=== PATIENT | female | born 1935 | race Caucasian/White ===

== ENCOUNTER 2016-06-19 13:33 | Observation (INO) | payer OTHER ==
[2016-06-19] VITALS (7 sets, daily range): BP systolic 125–145; BP diastolic 68–73; PULSE 61–73; RESP 16–18; TEMP 96.9–97.4; O2SAT 97–100
[~2016-06-19] VITALS: Ht 157.5 cm; Wt 48.1 kg
[~2016-06-19 13:33] MED LIST: ARIC5TAB PO; ASPI81 PO; BETH5TAB3 PO; DICL75 PO; DIGO0.12 PO; FLAG500T PO; FOSA70TA PO; LORTA5 PO; MACR100C PO; OMEP20TA39 PO; RANI150 PO; VITA200017 PO
[2016-06-19] MEDS ORDERED: [UNRECOGNIZED DRUG - CODE] PO (14:02)
[2016-06-19] MEDS ORDERED: ASPI81TA11 PO (14:02)
[2016-06-19] MEDS ORDERED: VITA100052 PO (14:02)
[2016-06-19] MEDS ORDERED: DIGO0.12 PO (14:02)
[2016-06-19] MEDS ORDERED: VITA100021 SL (14:03)
--- NOTE | 2016-06-19 14:12 | PD ---
HPI Chief Complaint: Musculoskeletal Complaint Time Seen by Provider: 14:00 Travel History International Travel<30 days: No Contact w/Intl Traveler<30days: No Traveled to known affect area: No History of Present Illness HPI 81-year-old female here for evaluation of left-sided chest pain. Pain started about 2 hours ago while at rest. Patient describes the pain as sharp/ache, constant, no modifying factors. She currently rates the pain as 10 out of 10. No dyspnea. She denies history of cardiac disease. No history of DVT or PE. Patient is on digoxin for history of A. fib. Apparently she also has history of dementia and is on Aricept. PFSH Past Medical History Atrial Fibrillation: Yes Heart Rhythm Problems: Yes (HX ATRIAL FIBRILLATION) Cancer: No Cardiac Catheterization: No Cardiovascular Problems: Yes High Cholesterol: No Chemotherapy: No Congestive Heart Failure: No Diabetes: No Diminished Hearing: No Gastrointestinal Disorders: No GERD: Yes Genitourinary: No Heparin Induced Thrombocytopen: No Hypertension: No Musculoskeletal: Yes (OSTEOPOROSIS) Reproductive: No Respiratory: No Radiation Therapy: No Ulcer: Yes Tetanus Vaccination: < 5 Years ?: Not Menopausal: Yes Past Surgical History Cholecystectomy: Yes Coronary Artery Bypass Graft: No Hysterectomy: Yes Social History Alcohol Use: Yes (OCC. WINE) Tobacco Use: No Substance Use: No Allergies-Medications (Allergen,Severity, Reaction): Coded Allergies: Cultivated Oat Pollen (Verified Allergy, Severe, Sneezing, 06/19/16) Reported Meds & Prescriptions Reported Meds & Active Scripts Active Reported Vitamin B-12 (Cyanocobalamin) 1,000 Mcg Subl Unknown Dose SL DAILY Digoxin 0.125 Mg Tab 0.125 Mg PO DAILY Vitamin D High Potency (Cholecalciferol) 1,000 Unit Cap 2,000 Units PO DAILY Urecholine (Bethanechol) 5 Mg Tab 5 Mg PO QID Aspirin EC (Aspirin) 81 Mg Tabdr 81 Mg PO DAILY Review of Systems Except as stated in HPI: all other systems reviewed are Neg Physical Exam Narrative GENERAL: Well-developed, thin, comfortable, no acute distress. SKIN: Focused skin assessment warm/dry. HEAD: Atraumatic. Normocephalic. EYES: Pupils equal and round. No scleral icterus. No injection or drainage. ENT: No nasal bleeding or discharge. Mucous membranes pink and moist. NECK: Trachea midline. No JVD. CARDIOVASCULAR: Regular rate and rhythm. Distal pulses brisk and equal bilaterally. RESPIRATORY: No accessory muscle use. Clear to auscultation. Breath sounds equal bilaterally. GASTROINTESTINAL: Abdomen soft, non-tender, nondistended. MUSCULOSKELETAL: No obvious deformities. No clubbing. No cyanosis. No edema. Left anterior chest wall without tenderness, without masses, without paradoxical chest wall movement, without step-off. NEUROLOGICAL: Awake and alert. No obvious cranial nerve deficits. Motor grossly within normal limits. Normal speech. PSYCHIATRIC: Appropriate mood and affect; insight and judgment normal. Data Data Last Documented VS Vital Signs Date Time Temp Pulse Resp B/P Pulse Ox O2 Delivery O2 Flow Rate FiO2 06/19/16 15:46 70 16 125/68 98 Room Air 06/19/16 13:44 97.4 Orders Electrocardiogram (06/19/16 14:05) Basic Metabolic Panel (Bmp) (06/19/16 14:05) Ckmb (Isoenzyme) Profile (06/19/16 14:05) Complete Blood Count With Diff (06/19/16 14:05) Magnesium (Mg) (06/19/16 14:05) Prothrombin Time / Inr (Pt) (06/19/16 14:05) Act Partial Throm Time (Ptt) (06/19/16 14:05) Troponin I (06/19/16 14:05) Chest, Single Ap (06/19/16 14:05) Ecg Monitoring (06/19/16 14:05) Iv Access Insert/Monitor (06/19/16 14:05) Oximetry (06/19/16 14:05) Aspirin Chew (Aspirin Chew) (06/19/16 14:15) Sodium Chloride 0.9% Flush (Ns Flush) (06/19/16 14:15) Digoxin (06/19/16 14:05) Ct Pulmonary Angiogram (06/19/16 14:05) Iohexol 350 Inj (Omnipaque 350 Inj) (06/19/16 15:08) Nitroglycerin Sl (Nitrostat Sl) (06/19/16 15:45) Place In Observation (06/19/16:52) Activity Bed Rest With Brp (06/19/16 15:52) Vital Signs (Adult) Q4H (06/19/16 15:52) Cardiac Rhythm .As Directed (06/19/16 15:52) Notify Dr: Other .PRN (06/19/16 15:52) Notify Dr. Parameters (06/19/16 15:52) Resp Oxygen Nasal Cannula (06/19/16 ) Diet Heart Healthy (06/19/16 Dinner) Ckmb (Isoenzyme) Profile (06/19/16 17:00) Ckmb (Isoenzyme) Profile (06/19/16 20:00) Troponin I (06/19/16 17:00) Troponin I (06/19/16 20:00) Electrocardiogram (06/19/16 17:00) Electrocardiogram (06/19/16 20:00) ^ Obtain (06/19/16 15:52) Sodium Chloride 0.9% Flush (Ns Flush) (06/19/16 16:00) Sodium Chloride 0.9% Flush (Ns Flush) (06/19/16 21:00) Acetaminophen (Tylenol) (06/19/16 16:00) Acetamin-Hydrocod 325-7.5 Mg ([place] 7.5 (06/19/16 16:00) Morphine Inj (Morphine Inj) (06/19/16 16:00) Ondansetron Inj (Zofran Inj) (06/19/16 16:00) Nitroglycerin Sl (Nitrostat Sl) (06/19/16 16:00) Temazepam (Restoril) (06/19/16 16:00) Pellet Machine Operator / Telemetry ORLIN.Q8H (06/19/16 15:52) Scd Bilateral/Knee High ORLIN.BID (06/19/16 15:52) Admit Order (Ed Use Only) (06/19/16 15:54) Labs Laboratory Tests Test 06/19/16 14:00 White Blood Count 5.3 TH/MM3 Red Blood Count 4.64 MIL/MM3 Hemoglobin 13.3 GM/DL Hematocrit 39.8 % Mean Corpuscular Volume 85.9 FL Mean Corpuscular Hemoglobin 28.6 PG Mean Corpuscular Hemoglobin 33.3 % Concent Red Cell Distribution Width 13.9 % Platelet Count 241 TH/MM3 Mean Platelet Volume 7.4 FL Neutrophils (%) (Auto) 54.5 % Lymphocytes (%) (Auto) 32.0 % Monocytes (%) (Auto) 8.2 % Eosinophils (%) (Auto) 4.7 % Basophils (%) (Auto) 0.6 % Neutrophils # (Auto) 2.9 TH/MM3 Lymphocytes # (Auto) 1.7 TH/MM3 Monocytes # (Auto) 0.4 TH/MM3 Eosinophils # (Auto) 0.3 TH/MM3 Basophils # (Auto) 0.0 TH/MM3 CBC Comment DIFF FINAL Differential Comment Prothrombin Time 11.8 SEC Prothromb Time International 1.1 RATIO Ratio Activated Partial 24.0 SEC Thromboplast Time Sodium Level 142 MEQ/L Potassium Level 3.8 MEQ/L Chloride Level 105 MEQ/L Carbon Dioxide Level 30.1 MEQ/L Anion Gap 7 MEQ/L Blood Urea Nitrogen 15 MG/DL Creatinine 0.75 MG/DL Estimat Glomerular Filtration 74 ML/MIN Rate Random Glucose 112 MG/DL Calcium Level 8.6 MG/DL Magnesium Level 2.8 MG/DL Total Creatine Kinase 75 U/L Troponin I LESS THAN 0.02 NG/ML Digoxin Level 0.9 NG/ML MDM Medical Decision Making Medical Screen Exam Complete: Yes Emergency Medical Condition: Yes Medical Record Reviewed: Yes Interpretation(s) EKG: Sinus, rate 66, leftward axis, normal intervals, Q waves in inferior leads , no acute ischemic abnormality. Differential Diagnosis ACS, pneumothorax, pericarditis, PE, pneumonia, musculoskeletal pain, Narrative Course Initial vital signs show heart rate 73, blood pressure 142/72, pulse ox 100% on room air, oral temp of 97.4F. CBC is unremarkable. BMP is unremarkable. Cardiac enzymes are negative. Digoxin level is 0.9. Chest x-ray: No acute disease. CT pulmonary angiogram: CONCLUSION: 1. No evidence of pulmonary embolism. 2. Scattered 5 mm less noncalcified pulmonary nodules within the upper lobes bilaterally. Follow CT of the chest in 6 months is recommended to confirm stability. 3. Aneurysmal dilatation of the ascending thoracic aorta measuring 4.1 cm AP by 2.9 cm transverse. 4. Cardiomegaly. The patient continues to complain of left-sided chest discomfort, however states it has improved since she has arrived in the emergency department. She was made aware of all findings. She will be admitted to the chest pain center for further cardiac evaluation. She is amenable to this plan. Case discussed with hospitalist Dr. Hernández who will admit the patient to his service to the chest pain center. I discussed all findings and plan for observation the chest pain center with the patient's son who lives in [place] via the patient's cell phone. Diagnosis Primary Impression: Chest pain Qualified Code: R07.9 - Chest pain, unspecified type Additional Impressions: Thoracic aortic aneurysm Qualified Code: I71.2 - Thoracic aortic aneurysm without rupture Pulmonary nodule Nikolai Moran MD June 19, 2016 14:12
[2016-06-19 14:15] LABS: AUTOMATED NEUTROPHIL # 2.9 TH/MM3 (1.8-7.7); BASOPHIL % 0.6 % (0.0-2.0); EOSINOPHIL # 0.3 TH/MM3 (0-0.4); EOSINOPHIL % 4.7 % (0.0-4.0); HEMATOCRIT 39.8 % (35.0-46.0); HEMO FLAGS DIFF FINAL; LYMPHOCYTE # 1.7 TH/MM3 (1.0-4.8); MEAN CELL VOLUME 85.9 FL (80.0-100.0); MEAN CORPUSCULAR HEMOGLOBIN 28.6 PG (27.0-34.0); MEAN CORPUSCULAR HGB CONC 33.3 % (32.0-36.0); MONO % 8.2 % (0.0-8.0); NEUT % 54.5 % (16.0-70.0); PLATELET COUNT 241 TH/MM3 (150-450); RED BLOOD COUNT 4.64 MIL/MM3 (4.00-5.30); RED CELL DISTRIBUTION WIDTH 13.9 % (11.6-17.2); WHITE BLOOD COUNT 5.3 TH/MM3 (4.0-11.0)
[2016-06-19] MEDS ORDERED: ASPIRIN 81 MG CHEW TAB PO ONE (14:15)
[2016-06-19] MEDS ORDERED: SODIUM CHLORIDE 0.9% FLUSH 10 ML FLUSH IVF PRN (14:15)
--- NOTE | 2016-06-19 14:19 | RADHPO ---
EXAM DATE/TIME: 06/19/2016 14:12 [facility] COMPARISON: No previous studies available for comparison. INDICATIONS : Left upper chest pain today MEDICAL HISTORY : None. SURGICAL HISTORY : None. ENCOUNTER: Initial ACUITY: 1 day PAIN SCORE: 9/10 LOCATION: Left upper chest FINDINGS: A single view of the chest demonstrates the lungs to be symmetrically aerated without evidence of mas s, infiltrate or effusion. Apical pleural thickening on the right. The cardiomediastinal contours are unremarkable. Osseous structures are intact. CONCLUSION: No acute disease. Thomas Espinoza MD on June 19, 2016 at 14:17 Board Certified Radiologist. This report was verified electronically.
[2016-06-19 14:23] LABS: CHLORIDE 105 MEQ/L (98-107); POTASSIUM 3.8 MEQ/L (3.5-5.1); SODIUM (NA) 142 MEQ/L (136-145)
[2016-06-19 14:26] LABS: ANION GAP 7 MEQ/L (5-15); BICARBONATE 30.1 MEQ/L (21.0-32.0); BLOOD UREA NITROGEN 15 MG/DL (7-18); MAGNESIUM 2.8 MG/DL (1.5-2.5)
[2016-06-19 14:28] LABS: INTERNATIONAL NORMALIZED RATIO 1.1 RATIO; PROTHROMBIN TIME - PATIENT 11.8 SEC (9.8-11.6)
[2016-06-19 14:29] LABS: GLOMERULAR FILTRATION RATE 74 ML/MIN (>89)
[2016-06-19 14:38] LABS: CREATINE KINASE 75 U/L (26-192)
[2016-06-19 15:08] LABS: DIGOXIN 0.9 NG/ML (0.8-2.0)
[2016-06-19] MEDS ORDERED: IOHEXOL 350 MG/ML 10 ML VIAL (for RAD DIAG) IV ONE (15:08)
--- NOTE | 2016-06-19 15:28 | RADHPO ---
EXAM DATE/TIME: 06/19/2016 14:57 [facility] COMPARISON: No previous studies available for comparison. INDICATIONS : Left chest pain. IV CONTRAST: 100 cc Omnipaque 350 (iohexol) IV RADIATION DOSE: 6.1 CTDIvol (mGy) MEDICAL HISTORY : Cardiovascular disease. SURGICAL HISTORY : None. ENCOUNTER: Initial ACUITY: 1 day PAIN SCALE: 5/10 LOCATION: Left chest TECHNIQUE: Volumetric scanning of the chest was performed using a pulmonary embolism protocol MIP images were re constructed. Using automated exposure control and adjustment of the mA and/or kV according to patien t size, radiation dose was kept as low as reasonably achievable to obtain optimal diagnostic quality images. FINDINGS: PULMONARY ARTERIES: No filling defects are seen in the pulmonary arteries through the segmental level. LUNGS: There is no consolidation or pneumothorax . Scattered noncalcified nodules are noted bilaterally prob ably within the inferior aspects of the upper lobes. The largest nodule is located within the lingula of the left upper lobe and measures 5 mm. There are at least 5 sub-5 mm nodules within the inferior aspect of the right upper lobe. Followup CT of chest in 6 months is recommended to confirm stability of these indeterminate nodules. Biapical fibrotic scarring is noted. PLEURAE: There is no pleural thickening or pleural effusion. MEDIASTINUM: There is good visualization of the great vessels of the middle mediastinum. No evidence of mediastin al or hilar adenopathy/mass. There is aneurysmal dilatation of the ascending thoracic aorta which hadley sures 4.1 cm AP by 2.9 cm transverse. The heart is enlarged. MUSCULOSKELETAL: Within normal limits for patient age. MISCELLANEOUS: The visualized upper abdominal organs demonstrate no acute abnormality. CONCLUSION: 1. No evidence of pulmonary embolism. 2. Scattered 5 mm less noncalcified pulmonary nodules within the upper lobes bilaterally. Follow CT o f the chest in 6 months is recommended to confirm stability. 3. Aneurysmal dilatation of the ascending thoracic aorta measuring 4.1 cm AP by 2.9 cm transverse. 4. Cardiomegaly. Vicente Santillan MD on June 19, 2016 at 15:19 Board Certified Radiologist. This report was verified electronically.
[2016-06-19] MEDS ORDERED: NITROGLYCERIN 0.4 MG SL 25 TABS/BTL SL ONE (15:45)
[2016-06-19] MEDS ORDERED: NITROGLYCERIN 0.4 MG SL 25 TABS/BTL SL PRN (16:00)
[2016-06-19] MEDS ORDERED: ACETAMINOPHEN/HYDROcodone 325 MG/7.5 MG TAB PO PRN (16:00)
[2016-06-19] MEDS ORDERED: TEMAZEPAM 15 MG CAP PO PRN (16:00)
[2016-06-19] MEDS ORDERED: ONDANSETRON HCL 4 MG/2 ML VIAL IV PRN (16:00)
[2016-06-19] MEDS ORDERED: SODIUM CHLORIDE 0.9% FLUSH 10 ML FLUSH IV FLUSH PRN (16:00)
[2016-06-19] MEDS ORDERED: MORPHINE SULFATE 4 MG/ML INJ IV PRN (16:00)
[2016-06-19] MEDS ORDERED: ACETAMINOPHEN 500 MG CPLT PO PRN (16:00)
--- NOTE | 2016-06-19 16:36 | HHI.HP ---
[facility] Primary Care Physician Jennifer Carrion Admission Diagnosis chest pain, thoracic aortic aneurysm, pulmonary nodules Diagnoses: (1) Chest pain Diagnosis: Principal (2) Atrial fibrillation Diagnosis: Secondary (3) Pulmonary nodule Diagnosis: Secondary (4) Thoracic aortic aneurysm Diagnosis: Secondary Chief Complaint: Chest pain Travel History International Travel<30 Days: No Contact w/Intl Traveler <30 Da: No Traveled to Known Affected Are: No History of Present Illness Note written by Robert Banerjee, acting as scribe for Dr. Hernández on 06/19/16 at 16:24. 81-year-old female with known history of atrial fibrillation, gastric reflux who presented to hospital because of chest discomfort. Patient states that she is in normal state of health until today when she was eating lunch. She is eating a leftover wrap from last evening she developed a pain in her left chest located on the left side of her left breast. It is a rather sharp pain that increased in intensity every couple seconds scaled as a 8/10. She states that the pain was persistent until she came to the hospital. She was given 4 aspirin and 2 nitroglycerin with improvement of the pain however did not resolve completely. Patient still experiencing discomfort when seen in the ER. She states that is a 4/10 on a pain scale. Patient states that she has never had this type of pain before. She has been to the hospital 2011 in which she underwent evaluation chest pain center with nuclear stress test and it was normal that time. Patient denies any radiation of pain, nausea, vomiting, shortness of breath, dyspnea, dizziness, lightheadedness. Patient denies any recent physical activity to include yard work, heavy lifting or straining, repetition upper extremity Review of Systems Constitutional: DENIES: Diaphoretic episodes, Fatigue, Fever, Weight gain, Weight loss, Chills, Dizziness, Change in appetite, Night Sweats Eyes: DENIES: Blurred vision, Diplopia, Eye inflammation, Eye pain, Vision loss , Double Vision Ears, nose, mouth, throat: DENIES: Vertigo, Nasal discharge, Throat pain, Ear Pain, Running Nose, Sinus Pain Respiratory: DENIES: Apneas, Cough, Snoring, Wheezing, Hemoptysis, Sputum production, Shortness of breath Cardiovascular: COMPLAINS OF: Chest pain, DENIES: Palpitations, Syncope, Dyspnea on Exertion, Lower Extremity Edema, Orthopnea Gastrointestinal: DENIES: Abdominal pain, Black stools, Bloody stools, Constipation, Diarrhea, Nausea, Vomiting, Difficulty Swallowing, Anorexia Neurologic: DENIES: Abnormal gait, Headache, Localized weakness, Paresthesias, Seizures, Speech Problems, Tremor, Poor Balance Past Family Social History Past Medical History Atrial fibrillation Gastroesophageal reflux Past Surgical History Hysterectomy Cholecystectomy Reported Medications Reported Meds & Active Scripts Active Reported Vitamin B-12 (Cyanocobalamin) 1,000 Mcg Subl Unknown Dose SL DAILY Digoxin 0.125 Mg Tab 0.125 Mg PO DAILY Vitamin D High Potency (Cholecalciferol) 1,000 Unit Cap 2,000 Units PO DAILY Urecholine (Bethanechol) 5 Mg Tab 5 Mg PO QID Aspirin EC (Aspirin) 81 Mg Tabdr 81 Mg PO DAILY Allergies: Coded Allergies: Cultivated Oat Pollen (Verified Allergy, Severe, Sneezing, 06/19/16) Family History Family history reviewed and patient denies any significant heart disease, lung disease, diabetes, cancer, seizures, stroke Social History Patient denies any tobacco or illicit drugs. She states that she does drink a glass of wine nightly Physical Exam Vital Signs Vital Signs Date Time Temp Pulse Resp B/P Pulse Ox O2 Delivery O2 Flow Rate FiO2 06/19/16 15:46 70 16 125/68 98 Room Air 06/19/16 14:21 16 99 Room Air 06/19/16 13:44 97.4 73 16 142/72 100 Physical Exam GENERAL: Well-developed, well-nourished, in no acute distress. alert and orientated HEENT: Head is normocephalic without any lesions or masses noted. Facial features are symmetric. Eyes: Pupils equal round reactive to light. Extraocular muscles are intact. Conjunctivae were clear. Oropharyngeal: Pharynx without any erythema edema. Tongue is midline without deviation. Buccal mucosa is moist without any masses or lesions NECK: Supple without any masses. Trachea midline no deviation. No JVD, no bruits are appreciated CARDIAC: Regular rhythm, regular rate. S1/S2 are heard. No murmurs gallops or rubs. LUNGS: Clear to auscultation bilaterally. No wheeze, rhonchi or rales. No use of accessory muscles on inspiration or expiration. ABDOMEN: Soft, nontender. Nondistended. Bowel sounds heard in all 4 quadrants. No organomegaly or masses. Negative rebound, negative guarding EXTREMITIES: No edema, pulses are equal bilaterally. No cyanosis or clubbing NEUROLOGY: Mood and affect appear appropriate. Cranial nerves II through XII grossly intact. Muscle strength 5/5 in upper and lower extremities bilaterally. Deep tendon reflexes are 2+ in upper and lower extremities bilaterally. Laboratory Laboratory Tests Test 06/19/16 14:00 White Blood Count 5.3 Red Blood Count 4.64 Hemoglobin 13.3 Hematocrit 39.8 Mean Corpuscular Volume 85.9 Mean Corpuscular Hemoglobin 28.6 Mean Corpuscular Hemoglobin 33.3 Concent Red Cell Distribution Width 13.9 Platelet Count 241 Mean Platelet Volume 7.4 Neutrophils (%) (Auto) 54.5 Lymphocytes (%) (Auto) 32.0 Monocytes (%) (Auto) 8.2 Eosinophils (%) (Auto) 4.7 Basophils (%) (Auto) 0.6 Neutrophils # (Auto) 2.9 Lymphocytes # (Auto) 1.7 Monocytes # (Auto) 0.4 Eosinophils # (Auto) 0.3 Basophils # (Auto) 0.0 CBC Comment DIFF FINAL Differential Comment Prothrombin Time 11.8 Prothromb Time International 1.1 Ratio Activated Partial 24.0 Thromboplast Time Sodium Level 142 Potassium Level 3.8 Chloride Level 105 Carbon Dioxide Level 30.1 Anion Gap 7 Blood Urea Nitrogen 15 Creatinine 0.75 Estimat Glomerular Filtration 74 Rate Random Glucose 112 Calcium Level 8.6 Magnesium Level 2.8 Total Creatine Kinase 75 Troponin I LESS THAN 0.02 Digoxin Level 0.9 Result Diagram: 06/19/16 1400 06/19/16 1400 Imaging Last Impressions Chest X-Ray 06/19/161404 Signed Impressions: Service Date/Time: Sunday, June 19, 2016 14:12 - CONCLUSION: No acute disease. Thomas Espinoza MD CT Angiography 06/19/161404 Signed Impressions: Service Date/Time: Sunday, June 19, 2016 14:57 - CONCLUSION: 1. No evidence of pulmonary embolism. 2. Scattered 5 mm less noncalcified pulmonary nodules within the upper lobes bilaterally. Follow CT of the chest in 6 months is recommended to confirm stability. 3. Aneurysmal dilatation of the ascending thoracic aorta measuring 4.1 cm AP by 2.9 cm transverse. 4. Cardiomegaly. Vicente Santillan MD Assessment and Plan Assessment and Plan Chest pain, atypical Patient with increased risk factor to include age We'll continue to rule patient out for any acute coronary event with serial cardiac enzymes, serial EKGs If patient rules out for acute coronary event will pursue nuclear stress test for evaluation of underlying ischemia Continue aspirin, nitroglycerin, O2, nitroglycerin as needed Atrial fibrillation EKG reviewed shows sinus rhythm Digoxin was discontinued, digoxin level 0.9 CHADS/VASC 3, adjusted stroke rate 3.2% per year DVT prevention Sequential compression devices This note was transcribed by scribe [Robert Banerjee]. I, Dr. Donavon Hernández personally performed the history, physical exam, and medical decision making; and confirmed the accuracy of the information in the transcribed note. Authenticated by Dr. Donavon Hernández on 06/19/16 at 16:24. Problem Qualifiers (1) Chest pain: Qualified Code: R07.9 - Chest pain, unspecified type (2) Atrial fibrillation: Qualified Code: I48.91 - Atrial fibrillation, unspecified type (3) Thoracic aortic aneurysm: Qualified Code: I71.2 - Thoracic aortic aneurysm without rupture Robert Banerjee June 19, 2016 16:36 Donavon Hernández MD June 19, 2016 16:47
[2016-06-19 17:25] LABS: CREATINE KINASE 67 U/L (26-192)
[2016-06-19] MEDS: SODIUM CHLORIDE 0.9% FLUSH 10 ML FLUSH IV FLUSH SCH (20:56)
[2016-06-19 21:05] LABS: CREATINE KINASE 70 U/L (26-192)
[2016-06-20 00:26] VITALS: BP 121/72; PULSE 64; RESP 18; TEMP 97.6; O2SAT 98
[2016-06-20 04:07] VITALS: BP 110/66; PULSE 60; RESP 16; TEMP 97.9; O2SAT 97
[2016-06-20 08:00] VITALS: BP 130/73; PULSE 57; RESP 20; TEMP 96.2; O2SAT 99
[2016-06-20] MEDS ORDERED: DIGOXIN 0.125 MG TAB PO SCH (09:00)
[2016-06-20] MEDS: SODIUM CHLORIDE 0.9% FLUSH 10 ML FLUSH IV FLUSH SCH (09:49)
--- NOTE | 2016-06-20 10:46 | HHI.PR ---
Subjective Remarks Patient seen in follow-up for chest pain She reports the pain has resolved. No shortness of breath. Awaiting nuclear stress test. Objective Vitals Vital Signs Date Time Temp Pulse Resp B/P Pulse Ox O2 Delivery O2 Flow Rate FiO2 06/20/16 10:07 21 06/20/16 08:00 96.2 57 20 130/73 99 06/20/16 04:07 97.9 60 16 110/66 97 06/20/16 00:26 97.6 64 18 121/72 98 06/19/16 20:54 96.9 66 18 145/72 99 06/19/16 20:08 65 06/19/16 19:44 97 21 06/19/16 17:27 61 16 132/73 98 Room Air 06/19/16 15:46 70 16 125/68 98 Room Air 06/19/16 14:21 16 99 Room Air 06/19/16 13:44 97.4 73 16 142/72 100 Result Diagram: 06/19/16 1400 06/19/16 1400 Imaging Last Impressions Chest X-Ray 06/19/16 1405 Signed Impressions: Service Date/Time: Sunday, June 19, 2016 14:12 - CONCLUSION: No acute disease. Thomas Espinoza MD CT Angiography 06/19/16 1405 Signed Impressions: Service Date/Time: Sunday, June 19, 2016 14:57 - CONCLUSION: 1. No evidence of pulmonary embolism. 2. Scattered 5 mm less noncalcified pulmonary nodules within the upper lobes bilaterally. Follow CT of the chest in 6 months is recommended to confirm stability. 3. Aneurysmal dilatation of the ascending thoracic aorta measuring 4.1 cm AP by 2.9 cm transverse. 4. Cardiomegaly. Vicente Santillan MD Objective Remarks GENERAL: This is a well-nourished, well-developed patient, in no apparent distress. CARDIOVASCULAR: Normal rate and regular rhythm without murmurs, gallops, or rubs. RESPIRATORY: Good respiratory efforts. Breath sounds equal and clear to auscultation bilaterally. GASTROINTESTINAL: Abdomen soft, non-tender, non-distended. Normal active bowel sounds MUSCULOSKELETAL: Extremities without cyanosis, or edema. NEURO: Alert & Oriented x4 to person, place, time, situation. Moves all ext x4 PSYCH: Appropriate mood and affect. A/P Problem List: (1) Chest pain ICD Code: R07.9 Status: Acute (2) Atrial fibrillation ICD Code: I48.91 Status: Acute (3) Pulmonary nodule ICD Code: R91.1 Status: Acute (4) Thoracic aortic aneurysm ICD Code: I71.2 Status: Acute Assessment and Plan Chest pain, atypical Patient with increased risk factor to include age Serial cardiac enzymes and EKG unremarkable. - Nuclear stress test pending this morning. If negative the patient can be discharged home. Atrial fibrillation EKG reviewed shows sinus rhythm Digoxin continued, digoxin level 0.9 CHADS/VASC 3, adjusted stroke rate 3.2% per year DVT prevention Sequential compression devices Problem Qualifiers (1) Chest pain: Qualified Code: R07.9 - Chest pain, unspecified type (2) Atrial fibrillation: Qualified Code: I48.91 - Atrial fibrillation, unspecified type (3) Thoracic aortic aneurysm: Qualified Code: I71.2 - Thoracic aortic aneurysm without rupture Donavon Hernández MD June 20, 2016 10:46
[2016-06-20] MEDS ORDERED: REGADENOSON INJ 0.4 MG/5 ML SYR IV ONE (11:47)
--- NOTE | 2016-06-20 12:58 | RADHPO ---
EXAM DATE/TIME: 06/20/2016 11:48 [facility] COMPARISON: No previous studies available for comparison. INDICATIONS : Left sided chest pain. Angina. Atrial fibrillation. DOSE: 25.9 mCi Tc99m Myoview at stress. 8.3 mCi Tc99m Myoview at rest. 0.4 mg Lexiscan STRESS SYMPTOMS: Dizziness and headache. EJECTION FRACTION: > 70% MEDICAL HISTORY : Hypertension. Gastroesophageal reflux disease. A-Fib. SURGICAL HISTORY : Hysterectomy. Cholecystectomy. ENCOUNTER: Initial ACUITY: 1 day PAIN SCALE: 0/10 LOCATION: Left chest TECHNIQUE: The patient underwent pharmacologic stress with infusion of prescribed dose. Continuous ECG tracing was monitored during stress. Gated SPECT imaging was performed after stress and conventional SPECT i maging was performed at rest. The examination was performed on a SPECT/CT scanner, both attenuation and non-corrected datasets were reviewed. FINDINGS: DISTRIBUTION: The maximum perfused segment at stress is in the anterolateral wall. PERFUSION STUDY: The pattern of perfusion at stress is within normal limits. GATED STUDY: There is intact wall motion and thickening without hypokinetic or dyskinetic segments. CONCLUSION: 1. No significant reversible perfusion defect to suggest ischemia. 2. Normal ejection fraction. RISK CATEGORY: Low (<1% Annual Mortality Rate) Thomas Espinoza MD on June 20, 2016 at 12:54 Board Certified Radiologist. This report was verified electronically.
--- NOTE | 2016-06-20 13:01 | HHI.DCPOC ---
Discharge Care Plan Diagnosis: (1) Chest pain Goals to Promote Your Health * To prevent worsening of your condition and complications * To maintain your health at the optimal level Directions to Meet Your Goals Take your medications as prescribed Follow your dietary instruction Follow activity as directed Keep your appointments as scheduled Take your immunizations and boosters as scheduled If your symptoms worsen call your PCP, if no PCP go to Urgent Care Center or Emergency Room Smoking is Dangerous to Your Health. Avoid second hand smoke Call the 24-hour hour crisis hotline for domestic abuse at Robert Banerjee June 20, 2016 13:01
--- NOTE | 2016-06-20 13:33 | EKG ---
Date Performed: 06/19/2016 Time Performed: 14:19:46 PTAGE: 81 years EKG: Sinus rhythm Left axis deviation Possible inferior infarct - age undetermined Abnormal ECG PREVIOUS TRACING : 01/30/2012 16.50 DOCTOR: Jesus Manuel Interpretating Date/Time 06/20/2016 13:32:19
--- NOTE | 2016-06-20 13:35 | EKG ---
Date Performed: 06/19/2016 Time Performed: 16:57:36 PTAGE: 81 years EKG: Sinus bradycardia Left axis deviation Possible inferior infarct - age undetermined Abnormal ECG PREVIOUS TRACING : 06/19/2016 14.19 DOCTOR: Jesus Manuel Interpretating Date/Time 06/20/2016 13:33:18
--- NOTE | 2016-06-20 13:39 | EKG ---
Date Performed: 06/19/2016 Time Performed: 20:21:44 PTAGE: 81 years EKG: Sinus rhythm with borderline 1st degree A-V block. Left axis deviation Possible inferior infarct - age undetermin ed Abnormal ECG PREVIOUS TRACING : 06/19/2016 14.19 DOCTOR: Jesus Manuel Interpretating Date/Time 06/20/2016 13:37:40
--- NOTE | 2016-06-20 14:10 | TR ---
Date Performed: 06/20/2016 Time Performed: 12:09:58 DOCTOR: Jesus Manuel DRUG LIST: CLINICAL HISTORY: REASON FOR TEST: Chest pain REASON FOR ENDING: OBSERVATION: CONCLUSION: Lexiscan stress test was performed under standard four minute protocol. Radionuclide was injected one minute prior to ending the test. Developed dizziness and headache, systolic blood p ressure was mildly elevated. No electrocardiographic abnormalities were present to suggest ischemia. Recovery was quick and uneventful with resolution of symptoms, systolic blood pressure remained mildl y elevated. Nuclear imaging and interpretation are pending. COMMENTS:
== END 2016-06-20 14:39 | disposition home or self-care (01) ==
LOC: PHED 13:33 → UNDOADMOB 15:55 → PHEDA 15:55 → PH3B 17:45 → UNDODISOB 06-20 14:39
PROVIDERS: ADMIT Family Medicine; ATTEND Family Medicine
DX: R07.89 Other chest pain (principal); I48.91 Unspecified atrial fibrillation; R91.1 Solitary pulmonary nodule; I71.2 Thoracic aortic aneurysm, without rupture; K21.9 Gastro-esophageal reflux disease without esophagitis; M81.0 Age-related osteoporosis without current pathological fracture; F03.90 Unspecified dementia, unspecified severity, without behavioral disturbance, psychotic disturbance, mood disturbance, and anxiety; Z91.018 Allergy to other foods; Z79.82 Long term (current) use of aspirin
CPT/HCPCS: 71010; 71275; 78452; 80048; 80162; 82550; 83735; 84484; 85025; 85610; 85730; 93005; 93017; 99285; A9502; G0378; J2785; Q9967